=== PATIENT | male | born 1990 | race Caucasian/White ===

== ENCOUNTER 2025-02-27 16:14 | Inpatient (IN) | payer OTHER ==
[2025-02-27 16:45] VITALS: BMI 37.1
[2025-02-27] MEDS ORDERED: METHOCARBAMOL 500 MG TABLET PO PRN (17:08)
[2025-02-27] MEDS ORDERED: MAG HYDROX/AL HYDROX/SIMETH 30 ML UNIT-DOSE CUP PO PRN (17:08)
[2025-02-27] MEDS ORDERED: guaiFENesin 600 MG TABLET.ER (FP) PO PRN (17:08)
[2025-02-27] MEDS ORDERED: IBUPROFEN 600 MG TABLET (FP) PO PRN (17:08)
[2025-02-27] MEDS ORDERED: BENZOCAINE/MENTHOL (CHLORASEPTIC ) LOZENGE MM PRN (17:08)
[2025-02-27] MEDS ORDERED: DICYCLOMINE HCL 10 MG CAPSULE PO PRN (17:08)
[2025-02-27] MEDS ORDERED: ONDANSETRON *ODT* 4 MG TABLET SL PRN (17:08)
[2025-02-27] MEDS ORDERED: NALOXONE (NARCAN) HCL 4 MG/0.1 ML SPRAY NS PRN (17:08)
[2025-02-27] MEDS ORDERED: BISMUTH SUBSALICYLATE 524 MG/30 ML PO PRN (17:08)
[2025-02-27] MEDS ORDERED: MAGNESIUM HYDROX 2400MG/30ML ORAL SUSPENSION 30 ML CUP PO PRN (17:08)
[2025-02-27] MEDS ORDERED: hydrOXYzine PAMOATE 25 MG CAPSULE (FP) PO PRN (17:08)
[2025-02-27] MEDS ORDERED: ACETAMINOPHEN 325 MG TABLET (FP) PO PRN (17:08)
[2025-02-27] MEDS ORDERED: BENZONATATE 200 MG CAPSULE PO PRN (17:08)
[2025-02-27] MEDS ORDERED: POLYETHYLENE GLYCOL (HEALTHYLAX) 3350 17 GM PACKET PO PRN (17:08)
[2025-02-27] MEDS ORDERED: IBUPROFEN 400 MG TABLET (FP) PO PRN (17:08)
[2025-02-27] MEDS ORDERED: LOPERAMIDE HCL 2 MG CAPSULE PO PRN (17:08)
[2025-02-27] MEDS ORDERED: chlordiazePOXIDE HCL 25 MG CAPSULE PO PRN (17:10)
[2025-02-27] MEDS ORDERED: chlordiazePOXIDE HCL 25 MG CAPSULE ONE (17:56)
[2025-02-27] MEDS: chlordiazePOXIDE HCL 25 MG CAPSULE PO SCH (17:59)
[2025-02-27] MEDS: MELATONIN 5 MG TABLETS PO SCH (22:12)
[2025-02-27] MEDS: THIAMINE 100 MG TABLET PO SCH (22:12)
[2025-02-28 06:10] VITALS: RESP 16; TEMP 97.3
[2025-02-28 08:53] VITALS: BP 130/87; PULSE 90
[2025-02-28] MEDS: PRENATAL VITAMINS W/ FOLIC ACID TABLET (FP) PO SCH (10:35)
[2025-02-28 11:10] LABS: HEMATOCRIT 47.1 % (40.1-51.0); HEMOGLOBIN 15.3 g/dL (13.7-17.5); MCHC 32.5 g/dl (32.3-36.5); MEAN CELL VOLUME 93.5 fl (79.0-92.2); MEAN PLT VOLUME 9.6 fl (9.4-12.4); PLATELET COUNT 212 x10^3/uL (163-337); RDW 13.2 % (12.0-15.6)
[2025-02-28 11:11] LABS: CHLORIDE 96 mmol/L (98-107); POTASSIUM 3.6 mmol/L (3.5-5.1); SODIUM 140 mmol/L (136-145)
[2025-02-28 11:28] LABS: ALBUMIN 3.2 g/dl (3.4-5.0); ANION GAP 14 mmol/L (4-13); BLOOD UREA NITROGEN 8.2 mg/dL (7-18); CALCIUM 9.2 mg/dL (8.5-10.1); CO2 30 mmol/L (21-32); GLUCOSE,RANDOM 91 mg/dL (74-106)
[2025-02-28 11:31] LABS: SGPT/ALT 59 U/L (13-61)
[2025-02-28 11:32] LABS: CREATININE 0.6 mg/dL (0.55-1.3); SGOT/AST 64 U/L (15-37)
[2025-02-28 11:33] LABS: BILIRUBIN,TOTAL 1.6 mg/dL (0.2-1); TOT PROT 6.8 g/dl (6.4-8.2)
[2025-02-28 11:34] LABS: ALK PHOS 108 U/L (45-117)
[2025-03-01] MEDS ORDERED: chlordiazePOXIDE HCL 25 MG CAPSULE PO SCH (05:00)
[2025-03-02] MEDS ORDERED: chlordiazePOXIDE HCL 10 MG CAPSULE PO PRN
[2025-03-02] MEDS ORDERED: chlordiazePOXIDE HCL 10 MG CAPSULE PO SCH (05:00)
[2025-03-03] MEDS ORDERED: chlordiazePOXIDE HCL 10 MG CAPSULE PO SCH (05:00)
[2025-03-04] MEDS ORDERED: chlordiazePOXIDE HCL 10 MG CAPSULE PO ONE (05:00)
== END 2025-02-28 11:04 | disposition left against medical advice (07) | DRG 770 ==
LOC: YASAS 16:14 → Y3N 18:04
PROVIDERS: ADMIT Allergy & Immunology; ATTEND Allergy & Immunology
PROC: HZ2ZZZZ Detoxification Services for Substance Abuse Treatment (ICD-10-PCS; principal; 2025-02-27)
DX: F10.230 Alcohol dependence with withdrawal, uncomplicated (principal); F41.9 Anxiety disorder, unspecified; F32.A Depression, unspecified
CPT/HCPCS: 36415; 80053; 80305; 80307; 85027; 86780; 93005; 93010